=== PATIENT | male | born 1985 | race African-American/Black ===

== ENCOUNTER 2019-07-26 08:33 | Emergency (ER) | payer SELFPAY ==
[2019-07-26] MEDS ORDERED: Lidocaine 1% PF 5 ML VIAL ONE (10:27)
== END 2019-07-26 10:48 | disposition home or self-care (01) ==
LOC: ERS 08:33
DX: H10.9 Unspecified conjunctivitis (principal); L02.214 Cutaneous abscess of groin; F17.210 Nicotine dependence, cigarettes, uncomplicated
CPT/HCPCS: 10060; J2001